=== PATIENT | female | born 1995 | race Caucasian/White ===

== ENCOUNTER 2018-07-13 12:13 | Emergency (ER) | payer OTHER ==
[~2018-07-13] VITALS: Ht 167.6 cm; Wt 58.2 kg
[2018-07-13 12:30] VITALS: TEMP 98.7
[2018-07-13 13:36] LABS: COLLECTION METHOD CLEAN CATCH
[2018-07-13 13:45] LABS: PH 6 (5-8); SQUAMOUS EPITHELIAL 0-2 /hpf; URINE APPEARANCE Hazy; URINE BACTERIA Rare /hpf; URINE BILIRUBIN Negative (NEGATIVE); URINE BLOOD Negative (NEGATIVE); URINE COLOR Yellow; URINE GLUCOSE Negative (NEGATIVE); URINE KETONE 1+ (NEGATIVE); URINE LEUKOCYTE ESTERASE 1+ (NEGATIVE); URINE NITRATE Negative (NEGATIVE); URINE PROTEIN(semi-quant) Negative (NEGATIVE); URINE RBC 0-2 /hpf; URINE UROBILINOGEN Negative (NEGATIVE)
[2018-07-13 13:57] LABS: BASO % 0.5 % (0.0-2.0); EOS # 0.1 (0.0-0.7); EOS % 1.2 % (0-4.0); GRAN # 6.2 (1.4-6.5); GRAN % 76.8 % (42.2-75.2); HEMATOCRIT 43.9 % (37.0-47.0); HEMOGLOBIN 14.4 g/dl (12.5-16.0); LYMPH # 1.1 (1.2-3.4); LYMPH % 13.3 % (20.0-51.0); MEAN CELL VOLUME 95 fl (80.0-100.0); MEAN CORPUSCULAR HEMOGLOBIN 31 pg (27.0-31.0); MEAN CORPUSCULAR HGB CONC 33 g/dl (33.0-37.0); MEAN PLATELET VOLUME 9.9 fl (7.4-10.4); MONO # 0.6 (0.1-0.6); MONO % 7.8 % (1.7-9.3); PLATELET COUNT 132 K/mm3 (130-400); RED BLOOD COUNT 4.62 M/mm3 (4.10-5.30); REDCELL DISTRIBUTION WIDTH-CV 12.4 % (11.5-14.5)
[2018-07-13 14:13] LABS: ALBUMIN 4.3 gm/dL (3.5-5.0); BILIRUBIN,TOTAL 0.6 mg/dL (0.0-1.0); C-REACTIVE PROTEIN 4.8 mg/dL (0.0-0.9); CALCIUM 9.2 mg/dL (8.4-10.2); CREATININE, serum 0.71 (0.52-1.25); POTASSIUM 3.9 mmol/L (3.4-5.0); TOTAL PROTEIN 7.9 gm/dL (6.4-8.2)
[2018-07-13] MEDS ORDERED: MIRALAX238G PO (15:43)
[2018-07-13] MEDS ORDERED: DULCOLAX STOOL100 MG PO (15:43)
[2018-07-13 15:59] VITALS: BP 115/75; PULSE 88
== END 2018-07-13 16:00 | disposition home or self-care (01) ==
LOC: COL.ER 12:13
PROVIDERS: Family Medicine
DX: K59.00 Constipation, unspecified (principal)
CPT/HCPCS: J2405; J7030; Q9967

== ENCOUNTER → 2018-07-15 | Outpatient (CLI) | payer OTHER ==
[~2018-07-15] MED LIST: DULCOLAX STOOL100 MG PO; MIRALAX238G PO
== END ==
LOC: COL.RAD 08:14
DX: R10.11 Right upper quadrant pain (principal); R11.0 Nausea